=== PATIENT | female | born 1985 | race Hispanic/Latino ===

== ENCOUNTER 2017-07-29 21:20 | Emergency (ER) | payer OTHER ==
[2017-07-29 21:44] VITALS: O2SAT 100
[2017-07-29] MEDS ORDERED: Sodium Chloride 0.9% 1,000 ML IV ONE (22:10)
[2017-07-29] MEDS ORDERED: Sodium Chloride 0.9% 1,000 ML ONE (22:24)
[2017-07-29 22:29] LABS: BASO # 0.1 K/uL (0.0-0.2); EOS # 0.1 K/uL (0.0-0.7); EOS % 1.3 % (0.0-4.0); HEMATOCRIT 37.3 % (34.0-47.0); LYMPH # 1.4 K/uL (1.0-4.3); LYMPH % 18.6 % (20.0-40.0); MEAN CELL VOLUME 92.4 fL (81.0-99.0); MEAN CORPUSCULAR HEMOGLOBIN 32.8 pg (27.0-31.0); MEAN CORPUSCULAR HGB CONC 35.5 g/dL (33.0-37.0); MEAN PLATELET VOLUME 8.6 fL (7.2-11.7); MONO # 0.5 K/uL (0.0-0.8); MONO % 6.2 % (0.0-10.0); RED CELL DISTRIBUTION WIDTH 12.7 % (11.5-14.5); WHITE BLOOD COUNT 7.3 K/uL (4.8-10.8)
[2017-07-29 22:35] LABS: CHLORIDE 98 mmol/L (98-107)
[2017-07-29 22:36] LABS: POTASSIUM 3.1 mmol/L (3.6-5.2); SODIUM 137 mmol/L (132-148)
[2017-07-29 22:38] LABS: ALB/GLOB RATIO 1.6 (1.0-2.1); ALKALINE PHOSPHATASE 33 U/L (38-126); ALT/SGPT 24 U/L (9-52); AST/SGOT 19 U/L (14-36); BLOOD UREA NITROGEN 13 mg/dL (7-17); CARBON DIOXIDE 21 mmol/L (22-30); GFR AFRICAN-AMERICAN > 60; TOTAL PROTEIN 7.5 g/dL (6.3-8.3)
[2017-07-29 22:39] LABS: CALCIUM 9.1 mg/dl (8.6-10.4); GLUCOSE,RANDOM 90 mg/dL (65-105)
--- NOTE | 2017-07-29 23:32 | US ---
EXAM: US First Trimester, Transabdominal, Fetus A CLINICAL HISTORY: 31 years old, female; Signs and symptoms; Lmp or gestational age (in weeks): 7-27-17; Other: Bleed; ; Additional info: Vaginal bleed/ TECHNIQUE: Real-time transabdominal obstetrical ultrasound of the maternal pelvis and the first gestation (Fetus A) of a first trimester with image documentation. COMPARISON: No relevant prior studies available. FINDINGS: GESTATION A: Gestation: Twin with gestational sac a with mean sac diameter of 4.02 CM. pole of fetus a is 9 weeks 4 days menstrual age. Normal yolk sac. Cardiac activity with heart rate of 179 beats per minute. Placenta/amniotic fluid: Cannot be adequately evaluated due to the early gestational age. Uterus/cervix: Uterus measures 15.9 x 9.9 x 10.7 CM. No myometrial mass. Ovaries: Unremarkable. No mass. Free fluid: No free fluid. IMPRESSION: No acute findings. EXAM: US First Trimester Additional Gestation, Transabdominal, Fetus B CLINICAL HISTORY: 31 years old, female; Signs and symptoms; Lmp or gestational age (in weeks): 7--17; Other: Bleed; ; Additional info: Vaginal bleed/ TECHNIQUE: Real-time transabdominal obstetrical ultrasound of the maternal pelvis and the second gestation (Fetus B) of a first trimester with image documentation. COMPARISON: No relevant prior studies available. FINDINGS: GESTATION B: Gestation: Yolk sac measures 3.3 mm which is normal. Noma rump length corresponds to an estimated menstrual age of 9 weeks 4 days. Cardiac activity with heart rate of 171 beats per minute. Placenta/amniotic fluid: Mean sac diameter of the is 3.89 CM. Subchorionic hemorrhage adjacent to gestational sac B. measuring 3.4 x 2.1 x 2 CM. Ovaries: Right ovary is unremarkable. Normal blood flow. The left ovary is unremarkable, normal blood flow. No mass. IMPRESSION: 1. Twin at approximately 9 weeks 4 days menstrual age. Both poles with cardiac activity. 2. Subchorionic bleed adjacent to gestational sac B.
--- NOTE | 2017-07-29 23:55 | C.PDOC ---
History Of Present Illness 31 year old female presents to the ED with complaints of vaginal bleeding for one hour with associated hypogastric pain. Patient notes history of molar in the past and denies fever, chills, nausea, or vomiting. Chief Complaint (Nursing): Female Genitourinary History Per: Patient History/Exam Limitations: no limitations Onset/Duration Of Symptoms: Hrs (1 hour ) Current Symptoms Are (Timing): Still Present Quality Of Discomfort: "Pain" Associated Symptoms: denies: Fever, Chills, Nausea, Vomiting Alleviating Factors: None Recent travel outside of the [place]: No Abnormal Vaginal Bleeding: Yes Past Medical History Reviewed: Historical Data, Nursing Documentation, Vital Signs Vital Signs: Last Vital Signs Temp 98.5 F 07/29/17 21:39 Pulse 84 07/29/17 21:39 Resp 20 07/29/17 21:39 BP 136/77 07/29/17 21:39 Pulse Ox 100 07/29/17 23:55 - Medical History PMH: Hypothyroidism Family History: States: Unknown Family Hx - Social History Hx Alcohol Use: No Hx Substance Use: No - Immunization History Hx Tetanus Toxoid Vaccination: Yes Hx Influenza Vaccination: No Hx Pneumococcal Vaccination: Yes Review Of Systems Constitutional: Negative for: Fever, Chills Cardiovascular: Negative for: Chest Pain, Palpitations Respiratory: Negative for: Cough, Shortness of Breath Gastrointestinal: Positive for: Abdominal Pain. Negative for: Nausea, Vomiting , Diarrhea Genitourinary: Positive for: Vaginal Bleeding Musculoskeletal: Negative for: Back Pain Physical Exam - Physical Exam Appears: Non-toxic, No Acute Distress Skin: Warm, Dry Head: Atraumatic, Normacephalic Eye(s): bilateral: Normal Inspection, PERRL, EOMI Oral Mucosa: Moist Neck: Supple Chest: Symmetrical, No Deformity Cardiovascular: Rhythm Regular, No Murmur Respiratory: Normal Breath Sounds, No Rales, No Rhonchi, No Wheezing Gastrointestinal/Abdominal: Soft, Tenderness (mild hypogastric tenderness), No Distention, No Guarding, No Rebound Pelvic: Normal External Exam, No Cervical Motion Tenderness, Cervix Open ( slightly open ), Other (blood in the vaginal vault ) Extremity: Normal ROM, No Tenderness Neurological/Psych: Oriented x3 Gait: Steady ED Course And Treatment - Laboratory Results Result Diagrams: 07/29/17 22:18 07/29/17 22:18 O2 Sat by Pulse Oximetry: 100 (RA) - CT Scan/US US First Trimester, Transabdominal, F Other Rad Studies (CT/US): Read By Radiologist, Radiology Report Reviewed CT/US Interpretation: IMPRESSION: 1. Twin at approximately 9 weeks 4 days menstrual age. Both poles with cardiac. activity. 2. Subchorionic bleed adjacent to gestational sac B. Progress Note: US and labs were ordered. Patient was given IV fluids. Disposition Counseled Patient/Family Regarding: Diagnosis - Disposition Referrals: [facility] [Outside] Disposition: HOME/ ROUTINE Disposition Time: 23:55 Condition: STABLE Instructions: Threatened Miscarriage (ED) Forms: [employer] (Urdu) - POA Present On Arrival: None - Clinical Impression Clinical Impression: Threatened in first trimester - Scribe Statement The provider has reviewed the documentation as recorded by the Scribe Lesly Schwartz All medical record entries made by the Scribe were at my direction and personally dictated by me. I have reviewed the chart and agree that the record accurately reflects my personal performance of the history, physical exam, medical decision making, and the department course for this patient. I have also personally directed, reviewed, and agree with the discharge instructions and disposition.
[2017-07-30 00:12] VITALS: RESP 16
[2017-07-30 00:38] VITALS: BP 117/70; PULSE 76; TEMP 98.7
== END 2017-07-30 00:38 | disposition home or self-care (01) ==
LOC: C.ER 21:20
DX: O20.0 Threatened abortion (principal); Z3A.09 9 weeks gestation of pregnancy
CPT/HCPCS: 76801; 80053; 84702; 85025; 85610; 85730; 86850; 86900; 96360; 96361; 99284; J2792; J7040